=== PATIENT | male | born 1960 | race Caucasian/White ===

== ENCOUNTER 2021-06-04 10:50 | Observation (INO) ==
[2021-06-04] MEDS ORDERED: *HR* Propofol 200 MG/20 ML VIAL IVP ONE (11:34)
[2021-06-04] MEDS ORDERED: Lidocaine -MPF 2% 5 ML VIAL ONE (11:34)
[2021-06-04] MEDS ORDERED: *HR* Rocuronium Bromide 50 MG/5 ML VIAL ONE ×2 (11:34→13:32)
[2021-06-04] MEDS ORDERED: CeFAZolin Syr 2,000MG/20 ML 2,000 MG/20 ML SYRINGE IVPB ONE (11:36)
[2021-06-04] MEDS ORDERED: Lidocaine HCL 4 ML Topical Solution (Laryng-O-Jet Kit Sterile Pak) TP ONE (11:38)
[2021-06-04] MEDS: Ringers Solution, Lactated 1,000 ML IVC SCH ×2 (12:08→14:00)
[2021-06-04] MEDS ORDERED: Famotidine 20 MG/2 ML VIAL IVP ONE (12:09)
[2021-06-04] MEDS ORDERED: *HR* HYDROmorphone PF 0.5 MG/0.5 ML SYRINGE IVP PRN (12:09)
[2021-06-04] MEDS ORDERED: Acetaminophen IV 1,000 MG/100 ML BAG IVPB ONE (12:09)
[2021-06-04] MEDS ORDERED: *HR* OxyCODONE Immed Rel 5 MG TABLET PO PRN ×2 (12:09→18:12)
[2021-06-04] MEDS ORDERED: Ondansetron 4 MG/2 ML VIAL IVP PRN ×2 (12:09→18:12)
[2021-06-04] MEDS ORDERED: *HR* FentaNYL (PF) 100 MCG/2 ML VIAL ONE ×3 (12:28→14:33)
[2021-06-04] MEDS ORDERED: Ondansetron 4 MG/2 ML VIAL ONE (13:43)
[2021-06-04] MEDS ORDERED: Bupivacaine/EPI 1:200k 0.25% 50 ML VIAL ONE (14:46)
[2021-06-04] MEDS ORDERED: Sugammadex Sodium 200 MG/2 ML VIAL IV ONE (15:05)
[2021-06-04] MEDS ORDERED: *HR* HYDROMORPHONE 2 MG/ML VIAL ONE (15:18)
[2021-06-04] MEDS ORDERED: *HR* Belladonna Alkaloids/Opium 30 MG RECTAL SUPPOSITORY RC PRN (18:12)
[2021-06-04] MEDS ORDERED: 0.9 % Sodium Chloride 1,000 ML IVC SCH (18:12)
[2021-06-04] MEDS ORDERED: *HR* HYDROcodone/Acet 5/325 mg TABLET PO PRN (18:12)
[2021-06-04] MEDS ORDERED: *HR* FentaNYL (PF) 100 MCG/2 ML VIAL IVP PRN (18:12)
[2021-06-04] MEDS ORDERED: Naloxone 0.4 MG/ML INJ IVP PRN (18:12)
[2021-06-04] MEDS: Acetaminophen IV 1,000 MG/100 ML BAG IVPB SCH ×2 (20:02→23:47)
[2021-06-04] MEDS: CeFAZolin 2 GM/120 ML BAG IVPB SCH (23:51)
[2021-06-05 05:29] LABS: Basophils % 0.3 %; Hematocrit 39.6 % (37.5-50.1); Immature Granulocytes % 0.4 % (0-4); Lymphocytes # 1.1 K/mcL (0.6-4.6); Lymphocytes % 6.7 %; Mean Corpuscular HGB Conc 32.8 g/dL (31.6-35.5); Mean Corpuscular Hemoglobin 30.5 pg (28.0-33.3); Monocytes % 6.4 %; Neutrophils # 13.7 K/mcL (1.6-8.9); Platelet Count 225 K/mcL (140-400); Red Blood Count 4.26 M/mcL (4.19-5.50); Red Cell Distribution Width 12.3 % (11.5-14.5); Segmented Neutrophils % 86.2 %; White Blood Count 15.9 K/mcL (4.3-11.1)
[2021-06-05 05:34] LABS: BUN/Creatinine Ratio 9 (6-26); Blood Urea Nitrogen 12 mg/dL (8-23); Calcium 8.8 mg/dL (8.6-10.3); Carbon Dioxide 24 mEq/L (23-29); Chloride 102 mEq/L (98-107); Glucose 126 mg/dL (70-105); Osmolality,Calculated 279 (280-300); Potassium 4.5 mEq/L (3.5-5.1); Sodium 134 mEq/L (136-145); eGFR For African Americans > 60 (> 60); eGFR For Non-African Americans 51 (> 60)
[2021-06-05 07:10] VITALS: PULSE 69; O2SAT 94
[2021-06-05] MEDS: CeFAZolin 2 GM/120 ML BAG IVPB SCH (07:38)
[2021-06-05 08:28] VITALS: BP 152/88; TEMP 97.9
== END 2021-06-05 15:18 | disposition home or self-care (01) ==
LOC: SAMDAY 10:50 → 3ANU 17:56 → INTOOBSV 17:56
PROVIDERS: ADMIT Urology; ATTEND Urology